=== PATIENT | female | born 1950 | race Caucasian/White ===

== ENCOUNTER 2017-01-10 06:31 | Day surgery (SDC) | payer OTHER ==
[~2017-01-10] VITALS: Ht 160 cm; Wt 58.2 kg
[~2017-01-10 06:31] MED LIST: ACET325T33 PO; BISA10SU58 PR; CALC667C PO; CLON-379 PO; CRAN425C PO; FLUT16SP17 NASAL; FOLI-49 PO; INSU100C SQ; LANT3I SC; NEPH PO; ONDA4TAB8 PO; PANT40TA3 PO
[2017-01-10] MEDS ORDERED: AMLO5TAB4 PO (09:30)
[2017-01-10] MEDS ORDERED: MAGN400O4 PO (09:30)
[2017-01-10] MEDS ORDERED: LISI-313 PO (09:33)
[2017-01-10] MEDS ORDERED: METO-448 PO (09:34)
[2017-01-10] MEDS ORDERED: FOLI1CAP PO (09:35)
[2017-01-10] MEDS ORDERED: HYDR-906 PO ×2 (09:36→09:37)
[2017-01-10 09:41] VITALS: BP 197/77; PULSE 85; RESP 18; Ht 160 cm; Wt 58.2 kg
[2017-01-10 09:47] LABS: BASOPHIL # 0.1 10^3/ul (0.0-0.1); BASOPHILS % 0.8 % (0.0-2.0); EOSINOPHILS # 0.2 10^3/ul (0.0-0.5); EOSINOPHILS % 2.4 % (0.0-7.0); HEMATOCRIT 31.1 % (37.0-47.0); LYMPHOCYTES # 1.4 10^3/ul (0.8-2.9); LYMPHOCYTES % 18.2 % (15.0-51.0); MEAN CORPUSCULAR HEMOGLOBIN 30.9 pg (29.0-33.0); MEAN CORPUSCULAR HGB CONC 32.2 g/dl (32.0-37.0); MEAN PLATELET VOLUME 10.1 fl (7.4-10.4); MONOCYTE # 0.6 10^3/ul (0.3-0.9); MONOCYTES % 8.1 % (0.0-11.0); NEUTROPHIL # 5.5 10^3/ul (1.6-7.5); NEUTROPHILS % 70.1 % (39.0-77.0); PLATELET COUNT 216 10^3/UL (140-415); RED BLOOD COUNT 3.24 10^6/ul (4.20-5.40); RED CELL DISTRIBUTION WIDTH 14.8 % (11.5-14.5); WHITE BLOOD COUNT 7.8 10^3/ul (4.8-10.8)
[2017-01-10 10:05] LABS: INR 1.1; PROTIME 14.2 Sec (12.2-14.2); PT RATIO 1.1
[2017-01-10 10:12] LABS: CALCIUM 9.2 mg/dl (8.4-10.2); CREATININE 3.96 mg/dl (0.44-1.00); POTASSIUM 4.6 mmol/L (3.5-5.1)
[2017-01-10 10:49] LABS: PARTIAL THROMBOPLASTIN TIME 36.7 Sec (25.0-35.0)
--- NOTE | 2017-01-10 12:14 | RADRPT ---
PROCEDURE: XR Chest. CLINICAL INDICATION: pre op TECHNIQUE: PA and Lateral views of the chest were obtained. COMPARISON: Chest x-ray 04/13/2016 FINDINGS: A left-sided HERO shunt with the tip projecting over the mid-right atrium is stable position. The cardiac silhouette is borderline enlarged. Mild prominence of the main pulmonary artery is sugge stive of pulmonary hypertension. There are atherosclerotic calcifications of the thoracic aorta. No evidence of significant pulmonary vascular congestion. Interval slight increase in bibasilar atelectasis and / or scarring. No pneumothorax, pleural effusion, or parenchymal consolidation is identified. Multiple surgical clips project over the visualized upper extremities. There are degenerative changes of the visualized spine. IMPRESSION: 1. Thoracic aortic calcific atherosclerotic disease. 2. There is slight increase in bibasilar atelectasis and / or scarring. 3. Left-sided HERO shunt with tip in the right atrium, stable position. RPTAT: PP Physician Kuldeep Date Time Electronically viewed and signed by Physician Kuldeep on 01/10/2017 12:13 REE/
[2017-01-10 13:05] VITALS: BP 186/81; PULSE 82; RESP 16
[2017-01-10] MEDS ORDERED: CEFAZOLIN 2 GM/50 ML (PMX) 50 ML IVPB SCH (13:30)
--- NOTE | 2017-01-10 14:21 | OPR ---
DATE OF OPERATION: 01/10/2017 SURGEON: Jerald Greco MD PREOPERATIVE DIAGNOSIS: End-stage renal disease. POSTOPERATIVE DIAGNOSIS: End-stage renal disease. OPERATION PERFORMED: 1. Left upper extremity fistulogram. 2. Ultrasound access of the left upper extremity fistula graft. 3. Moderate sedation. ANESTHESIA: Anesthesia local with sedation. ESTIMATED BLOOD LOSS: Minimal. COMPLICATIONS: None. HEPARIN: None. CONTRAST: As recorded. ACCESS: Micropuncture kit in the left upper extremity fistula. CLOSURE: Manual compression. INDICATIONS: This is a 66-year-old female, whom has had a history of bilateral upper extremity AV fistula creations that have failed. The patient had undergone an advanced fistula creation with a left upper extremity AV graft creation that is connected to a central stent graft (0 HERO catheter). Patient has undergone fistula surveillance and there was some suggestion of increased velocities in the graft. Therefore, suggestion of a diagnostic fistulogram was recommended for further evaluation. The patient had been informed of the alternatives, risks and benefits of angiogram, balloon angioplasty and stenting. Risks including, but not limited to, bleeding, thrombosis, embolization, myocardial infarction, , device malfunction, infection nephrotoxic. The patient agreed to proceed. ULTRASOUND-GUIDED ACCESS OF THE LEFT UPPER EXTREMITY FISTULOGRAM FINDINGS: 1. Patent fistula. 2. Patent graft across the upper arm. 3. Patent central stent graft with flow to the right atrium. OPERATIVE PROCEDURE: The patient was brought into the angio suite, and positioned supine position on the fluoroscopic table. Sedation was administered without any complications. The left upper extremity was shaved and prepped in usual standard sterile fashion. Time-out and appropriate site was marked and confirmed. Local anesthesia was infiltrated in the left upper extremity fistula. Near the region of the left upper extremity fistula. The fistula was used and cannulated with a micro access needle under ultrasound guidance and a guidewire was advanced into the brachial artery. Under fluoroscopic guidance. The needle was removed and a micro catheter was placed. Multi station fistulogram and venogram of the upper arm was performed and essential stent graft. Findings are noted above. There is no areas of stenosis or flow-limiting stenosis identified. At this point, the catheter was removed. Manual compression was held over the area of access. The patient tolerated procedure well, and sent to post-anesthesia care unit in stable condition. PLAN: Patient will follow up with us in about 2 weeks for followup, and will recommend for ultrasound about 8-10 weeks. Dictated By: Jerald Greco MD /[email or web address] /Document#: [id number]
--- NOTE | 2017-01-11 09:01 | RADRPT ---
Vent Rate: 83 bpm RR Interval: 0 msec NV Interval: 138 msec QRS Duration: 82 msec QT Interval: 398 msec QTC Interval: 467 msec P-R-T [place]: 66 - 66 - 77 degrees Normal sinus rhythm Nonspecific T wave abnormality Abnormal ECG Electronically Signed By: Shaq Glover [id number]
[2017-01-11] MEDS ORDERED: IODIXANOL LOCM 100 ML BTL ONE (18:02)
[2017-01-11] MEDS ORDERED: LIDOCAINE 1% (MDV) 20 ML INJ ONE (18:02)
== END 2017-01-10 14:07 ==
LOC: CCL 06:31 → SDS 06:39 → CCL 14:07
PROVIDERS: ATTEND Student in an Organized Health Care Education/Training Program
DX: N18.6 End stage renal disease (principal); E11.9 Type 2 diabetes mellitus without complications
CPT/HCPCS: 36901; 71010; 80048; 82962; 85025; 85610; 85730; 93005; J1644; Q9967

== ENCOUNTER 2017-12-18 06:14 | Day surgery (SDC) | END 2017-12-18 09:58 | disposition home or self-care (01) ==

== ENCOUNTER 2018-01-02 00:35 | Emergency (ER) | END 2018-01-02 03:02 | disposition home or self-care (01) ==

== ENCOUNTER 2018-06-01 07:46 | Day surgery (SDC) | END 2018-06-01 13:07 | disposition home or self-care (01) ==